=== PATIENT | male | born 1995 | race Hispanic/Latino ===

== ENCOUNTER 2022-07-09 10:49 | Emergency (ER) | payer OTHER ==
[~2022-07-09] VITALS: Ht 188 cm; Wt 99.8 kg
[2022-07-09] MEDS ORDERED: KETOROLAC 30MG VIAL (30MG/ML) IM ONE (11:30)
[2022-07-09] MEDS ORDERED: NAPR-1180 PO (12:36)
[2022-07-09] MEDS ORDERED: BACL10TA PO (12:36)
[2022-07-09 12:48] VITALS: BP 119/78
== END 2022-07-09 12:54 | disposition home or self-care (01) ==
LOC: EDH 10:49
DX: S39.012A Strain of muscle, fascia and tendon of lower back, initial encounter (principal); Z90.49 Acquired absence of other specified parts of digestive tract; X58.XXXA Exposure to other specified factors, initial encounter; Y93.89 Activity, other specified; Y92.098 Other place in other non-institutional residence as the place of occurrence of the external cause; Y99.8 Other external cause status
CPT/HCPCS: 99283; 72100; 96372; J1885